=== PATIENT | female | born 1950 | race Caucasian/White ===

== ENCOUNTER 2023-01-30 06:59 | Outpatient (CLI) | payer MEDICARE, SELFPAY ==
[2023-01-30 07:47] LABS: Hematocrit 41.8 % (37.0-47.0); Hemoglobin 12.9 g/dL (12.0-15.0); Mean Corpuscular HGB Conc 30.9 g/dl (32-36); Mean Corpuscular Hemoglobin 28.9 pg (26-34); Mean Corpuscular Volume 93.5 fl (80-100); Platelet Count Result 300 k/mm3 (150-375); Red Blood Count 4.47 M/mm3 (4.2-5.4); Red Cell Distribution Width 14.5 % (11.5-14.5); White Blood Count 6.8 K/mm3 (4.5-10.0)
[2023-01-30 07:57] LABS: Anion Gap 9 mmol/L (8-16); Blood Urea Nitrogen 29 mg/dL (7-17); Calcium 9.3 mg/dL (8.4-10.2); Carbon Dioxide 26 mmol/L (22-30); Chloride 105 mmol/L (98-107); Estimated Glomerular Filt Rate 32; Glucose 121 mg/dL (65-110); Potassium 4.1 mmol/L (3.4-5.0); Sodium 140 mmol/L (137-145)
--- NOTE | 2023-01-30 08:27 | ECG_ITS ---
Measurements Intervals [place] Rate: 66 P: 55 TN: 162 QRS: -2 QRSD: 92 T: 31 QT: 446 QTc: 468 Interpretive Statements SINUS RHYTHM POSSIBLE LEFT ATRIAL ENLARGEMENT INCOMPLETE RIGHT BUNDLE BRANCH BLOCK CONSIDER INFERIOR INFARCT, AGE INDETERMINATE BASELINE WANDER- I, II ABNORMAL ECG NO PREVIOUS ECG AVAILABLE FOR COMPARISON Electronically Signed On 01-30-2023 9:19:24 ROOFING SALES REPRESENTATIVE by Ubaldo Louis D.O.
== END 2023-01-30 07:00 | disposition home or self-care (01) ==
PROVIDERS: PCP Nurse Practitioner Family; Visit Provider Neurological Surgery
DX: M48.062 Spinal stenosis, lumbar region with neurogenic claudication (principal); I10 Essential (primary) hypertension; Z01.818 Encounter for other preprocedural examination; I45.10 Unspecified right bundle-branch block
CPT/HCPCS: 36415; 80048; 85027; 93005

== ENCOUNTER 2023-02-02 11:22 | Outpatient (CLI) | payer MEDICARE, MEDICAID, SELFPAY ==
[2023-02-02 12:43] LABS: Hemoglobin A1C 5.5 % (<5.7)
[2023-02-02 12:44] LABS: Appearance Urine Clear (Clear); Bilirubin Urine Negative (Negative); Blood Urine 2+ (Negative); Color Urine Yellow (Yellow); Glucose Urine UA 3+ mg/dL (Negative); Ketones Urine Negative (Negative); Leukocyte Esterase Ur Trace LEU/UL (Negative); Nitrate Urine Negative (Negative); Protein Urine Negative (Negative); Specific Grav Ur 1.011 (1.001-1.035); Urobilinogen Urine 0.2 mg/dL (<2.0)
[2023-02-02 12:48] LABS: Add Urine Microscopic? YES; Partial Thromboplastin Time 30.5 SECONDS (22.3-36.8); Prothrombin Time 13.6 Seconds (11.1-14.7)
[2023-02-02 12:49] LABS: Bacteria Urine None Seen /hpf; Non Pathogenic Casts 0-2; Squamous Epithelial Cell Urine None seen /hpf (Few); WBC Urine 0-5 /hpf
== END 2023-02-02 11:23 | disposition home or self-care (01) ==
PROVIDERS: PCP Nurse Practitioner Family; Visit Provider Neurological Surgery
DX: M48.062 Spinal stenosis, lumbar region with neurogenic claudication (principal); E11.9 Type 2 diabetes mellitus without complications
CPT/HCPCS: 36415; 81001; 83036; 85610; 85730

== ENCOUNTER 2023-02-13 09:12 | Observation (INO) | payer MEDICARE, MEDICAID, SELFPAY ==
[2023-01-28 15:48] VITALS: BMI 34.4
--- NOTE | 2023-01-28 16:01 | PC.NURSE ---
PRE-OP INSTRUCTIONS, PLEASE READ CAREFULLY Report to the Outpatient Waiting Room, entrance under the green pavilion located off [facility], at time _0600_ on date _02/10/23_. Planned Procedure Time: _0730_. PACK A SMALL OVERNIGHT BAG AND LEAVE IN THE CAR Time changes happen often and if your time is changed the preop area will call you the afternoon before. - You and your visitor will be asked to self-screen and do not enter if you have any COVID symptoms. - A mask is optional within the hospital at this time. Patients may have clear liquids (water, carbonated beverages, clear teas, apple juice) until 3 hours prior to surgery (0430 AM) with a maximum of 20 ounces. - No food from midnight until time of surgery Take the following medications with a SIP of water the morning of surgery: _BUSPIRONE, CITALOPRAM, HYDROXYZINE, PREGABALIN_ DO NOT STOP ANY OF YOUR OTHER PRESCRIPTION MEDICATIONS PRIOR TO SURGERY ?EXCEPT THE FOLLOWING Medications to discontinue per DR. ANDERSON - _ASPIRIN, MULTIVITAMIN 7 DAYS PRIOR TO SURGERY, (PER PATIENT) Date to take last dose_02/02/23_ Please no make-up, nail tamazight, hairspray, perfume, deodorant, or body powder the day of surgery. No jewelry (including any body piercings) or valuables the day of surgery, leave them at home. Please take a shower or bath the night before, or the morning of, surgery with an antibacterial soap. Wear comfortable, loose fitting clothing. - Jewelry must be removed prior to entering the operating room. Rings and piercings that are not removed may be cut off. - The hospital will not accept responsibility for valuables. - Please leave all valuables, including medications, at home the day of surgery. If you are going home after surgery, a licensed parcel post truck driver must drive you home. - NO public transportation without another adult if you receive anesthesia. - We recommend that an adult stay with you for 24 hours following discharge. - We also recommend that you do not drive, make important decision, drink alcoholic beverages, or take any drugs that were not prescribed by your health care provider for at least 24 hours after your discharge time. Follow any additional instructions given to you from your surgeon. If you or anyone in your household have experienced Covid symptoms in the past week, please notify your surgeon or the nurse liaison at the phone number below for possible testing. Telephone instructions given to _PATIENT_and asked if any additional questions and then verbalized understanding. Patient advised to call surgeon office or pre surgery nurse liaison [phone] if any additional questions.
[2023-02-10] VITALS (14 sets, daily range): BP systolic 95–157; BP diastolic 35–55; PULSE 71–97; RESP 11–20; TEMP 36.3–37.2; O2SAT 96–100
--- NOTE | 2023-02-10 07:20 | WPDHPUPDATE1 ---
History and Physical Update Update Date/Time: 02/10/23 07:20 History and Physical has been reviewed, including an updated exam of the patient. There are NO changes in the patient's condition. Risks, benefits, and alternatives have been discussed and questions answered. Patient agrees to proceed with procedure.
[2023-02-10] MEDS: LACTATED RINGERS 1,000 ML 30 ML IV CONT ×2 (07:35→11:42)
--- NOTE | 2023-02-10 07:44 | WPDANESEPPF ---
Anes - Initial Pre Proc Eval Procedure: Operation Date: 02/10/23 07:30 Proposed Procedures p L2-3, L3-4, L4-5 Laminectomy Medial Facetectomies and Foraminotomies - Marita Arreola MD Date/Time: 02/10/23 07:44 Surgeon: aMrita Arreola MD Pre Op Diagnosis: Lumbar Stenosis with Neurogenic Claudication Patient Data Age: 72 Gender: F Height: 1.68 m Weight: 96.81 kg Allergies Allergy/AdvReac Type Severity Reaction Status Date / Time adhesive tape AdvReac SKIN Verified 01/28/23 15:34 IRRITATION Home Medications Medication Instructions Recorded Confirmed Type atorvastatin 20 mg tablet 20 mg PO DAILY 12/25/22 02/10/23 History buspirone 10 mg tablet 10 mg PO DAILY 12/25/22 02/10/23 History citalopram 40 mg tablet 20 mg PO DAILY 12/25/22 02/10/23 History dulaglutide 0.75 mg/0.5 mL 0.75 mg subcut WEEKLY 12/25/22 02/10/23 History subcutaneous pen injector (Trulicity) furosemide 40 mg tablet 40 mg PO QAM 12/25/22 02/10/23 History hydroxyzine HCl 10 mg tablet 10 mg PO ONCE 12/25/22 02/10/23 History lisinopril 20 mg tablet 20 mg PO DAILY 12/25/22 02/10/23 History omeprazole 40 mg capsule,delayed 40 mg PO DAILY 12/25/22 02/10/23 History release aspirin 81 mg capsule 81 mg PO DAILY 01/28/23 02/10/23 History empagliflozin 12.5 mg-metformin 1 tablet PO DAILY 01/28/23 02/10/23 History 1,000 mg tablet (Synjardy) fenofibrate nanocrystallized 145 145 mg PO DAILY 01/28/23 02/10/23 History mg tablet fluticasone propionate 50 2 spray intranasal DAILY 01/28/23 02/10/23 History mcg/actuation nasal spray,suspension multivitamin 1 tablet PO DAILY 01/28/23 02/10/23 History pregabalin 75 mg capsule 75 mg PO BID 01/28/23 02/10/23 History troglitazone 30 mg DAILY 01/28/23 02/10/23 History Patient hx anesthesia problems: none Family hx anesthesia problems: none Results Review: All pre-operative results and documents have been reviewed as part of the pre-operative evaluation. [facility] Social History Social History Smoking packs per day: 1.5 Smoking cigarettes per day: 30.0 Years smoked: 30 Smoking pack-years: 45.00 Smoking status: Former smoker Tobacco type: cigarettes Second hand tobacco smoke exposure: No Alcohol intake: current Alcohol use details: STATES FEW TIMES A YEAR Substance use: never Substance use type: does not use Lack of Transportation: YES Lack of Food: Sometimes True Current Housing: I Have Housing Concerned About Future Housing: No Difficulty Paying Gas/Electric Bills: No Difficulty Paying for Meds: No Currently Unemployed: No Education: High School Diploma/GED Difficulty w/ Childcare or Family Care: No Living arrangements: alone Occupation/Education: retired Gender identity (if verbalized by the patient): Female Sexual Orientation (if Verbalized by the Patient): Straight or Heterosexual Spiritual care concerns: No Anes - Eval Final PreProcedure Day of Procedure 02/10/23 07:44 Patient weight: obese Heart: regular rate and rhythm Lungs: clear to auscultation Airway: Mallampati scale class III Neurological: alert and oriented Last oral intake: >/= 8 hours ASA classification: III Emergent: no Anesthetic plan: proceed Anesthesia type and monitoring: general ETT and standard monitoring Results Review: All pre-operative results and documents have been reviewed as part of the pre-operative evaluation. Informed Consent: The patient's anesthetic plan and its attendant risks and benefits were discussed with the patient/family/POA. Questions were solicited and answers provided to the satisfaction of the patient/family/POA.
[2023-02-10 07:46] LABS: Glucose Point of Care 80 mg/dl (65-105)
[2023-02-10] MEDS: ceFAZolin 2 GM/D5W 50 ML 2 GM/50 ML BAG IVPB ×2 (07:54→16:49)
[2023-02-10] MEDS: BUPIVACAINE/EPINEPHRINE 0.5% 50 ML VIAL 30 ML INFILTRATE (08:29)
--- NOTE | 2023-02-10 11:36 | PM.OP ---
Procedure Note - Brief Procedure Note - Brief Date of procedure: 02/10/23 Lumbar Stenosis with Neurogenic Claudication Post-op diagnosis: Same Procedure performed: L2, L3, and L4 laminectomies Repair of iatrogenic CSF leak Surgeon: Marita Arreola MD Anesthesia: GETA Findings: CSF leak necountered at inferior aspect of laminectomy at site of previous surgery. Repaired with 5-0 neurolon, Duragen, and Duraseal followed by fat graft. Otherwise good decompression accomplished at all treated levels Estimated blood loss (mL): 300 Drains: No Packing: No Pathology: None sent Complications: Other complications (CSF leak) Condition: Stable Disposition: PACU
[2023-02-10 11:54] LABS: Glucose Point of Care 145 mg/dl (65-105)
[2023-02-10] MEDS: fentaNYL CITRATE INJ (*CRX) 100 MCG/2 ML VIAL 25 MCG IV PUSH (12:41)
--- NOTE | 2023-02-10 14:07 | ADMGEN ---
This patient, Louise Cook, was admitted to [facility] Surg Room 321-01. Patient/family oriented to hospital policies and general routines including ID bracelet, bed and alarms, visiting hours, pain management, procedures, bathroom and other care routines, personal items, smoking policy, room service/diet, and visiting hours. Information on how to activate the Rapid Response Team has been discussed. Patient/Family are encouraged to report perceived risks to care and to ask questions if they do not understand what they are told or what they should do. patient drowsy, vs stable, denies pain, c/o slight nausea
[2023-02-10] MEDS: ONDANSETRON INJ 4 MG/2 ML VIAL IV PUSH (14:22)
--- NOTE | 2023-02-10 15:27 | W.PM.PROC2 ---
Procedure Note - Detailed Date of Procedure 02/10/23 Pre-op Diagnosis Lumbar Stenosis with Neurogenic Claudication Post-op Diagnosis Same Procedure Performed 1. L2, L3, and L4 laminectomies, medial facetectomies, foraminotomies 2. Use of microscope for microsurgical dissection 3. Repair of iatrogenic CSF leak 4. Use of C-arm for fluoroscopy Surgeon Marita Arreola MD Cane Flume Feeding Machine Operator Kevin Anesthesia General and Local Indications Ms. Cook is a 72-year-old female with history of previous lumbar microdiskectomy, likely at L5-S1 based on the location of her previous incision, who presented with claudicatory back and bilateral leg pain which was unresponsive to multiple conservative measures. Imaging showed severe stenosis at L2-3, L3-4, and L4-5. Surgery in the form of laminectomies at these levels was recommended. Risks including bleeding, pain, infection, CSF leak, nerve damage, failure to relieve symptoms, weakness, paresthesias, and anesthetic complications were discussed. The patient provided written informed consent to proceed. Description of Procedure The patient was brought to the operating room, and general anesthesia was induced. The patient was placed prone on the Gage frame, and all pressure points were padded. Compression devices were placed on the patient's calves. The C-arm was brought onto the field to localize the appropriate disc space and assist with incisional planning. The previous incision was incoporated partially into his new incision. The area was prepped and draped in usual sterile fashion. A time out was conducted, and pre-operative antibiotics were administered. Local anesthesia was injected into the planned incision. A midline skin incision was made with a 10-blade scalpel, and dissection was carried down with the monopolar cautery to open the fascia. Once the spinous processes were located, a subperiosteal dissection was performed to expose the laminae bilaterally at L2, L3, and L4. Evidence of previous surgery was apparent near the L4-5 level. A self-retaining retractor was placed. The C-arm was brought in to confirm the correct level. The microscope was draped and brought into the field. The spinous processes of L2, L3, and L4 were removed with the Leksell. The high-speed drill was used to remove the laminae down to the ligamentum flavum at these levels. The remaining lamina was removed with kerrison rongeurs. The ligamentum flavum was opened and removed with the Kerrison. At the inferior aspect of the exposure on the right side, the dura was adherent to the overlying tissues, and a CSF leak was created while using the kerrison. Further exposure inferiorly was performed to expose the length of the durotomy. We were eventually able to visualize the entire durotomy and to close this primarily with a 5-0 neurolon. Small durotomies were being created with the needle, so a watertight closure was not achieved. Therefore, this was covered with Duragen followed by Duraseal. Hemostasis was ensured, and the area was copiously irrigated. A fat graft was harvested from the same incision and placed into the inferior half of the laminectomy defect. The muscle was loosely approximated with 0-Vicryl. The fascia was closed with 0-Vicryl in an interrupted fashion. The soft tissue was again copiously irrigated. The dermis was closed with 2-0 and 3-0 interrupted Vicryl. The skin was closed with 4-0 monocryl in subcuticular fashion. Skin glue was applied.? The patient was returned supine on the stretcher, extubated, and transferred to PACU without incident. Codes: 53993, 84060 x 2, 64138 Implants Duragen 1x1 Estimated Blood Loss 300 Drains No Packing No Pathology None sent Complications Other complications (Iatrogenic CSF leak at level of previous surgery) Condition Stable Disposition PACU [facility] Billing Surgery - Charge Forward: Surgery Billing
[2023-02-10] MEDS: oxyCODONE HCL (*CRX) 5 MG TAB IR PO (16:48)
[2023-02-10] MEDS: PREGABALIN (*CRX) 75 MG CAPSULE PO (16:50)
[2023-02-10] MEDS: ACETAMINOPHEN 500 MG TABLET 1000 MG PO (18:38)
[2023-02-10] MEDS: DOCUSATE SODIUM 100 MG CAPSULE PO (20:37)
[2023-02-10] MEDS: SODIUM CHLORIDE 0.9% IV 1,000 ML 100 ML IV CONT (20:41)
[2023-02-10 20:46] LABS: Glucose Point of Care 184 mg/dl (65-105)
[2023-02-11] MEDS: ceFAZolin 2 GM/D5W 50 ML 2 GM/50 ML BAG IVPB ×2 (00:48→09:08)
[2023-02-11 02:24] VITALS: BP 115/55; PULSE 82; RESP 16; TEMP 36.9; O2SAT 99
[2023-02-11] MEDS: ACETAMINOPHEN 500 MG TABLET 1000 MG PO ×3 (05:00→17:57)
[2023-02-11 05:38] VITALS: BP 98/49; PULSE 74; RESP 16; TEMP 37.1; O2SAT 98
[2023-02-11 07:53] LABS: Glucose Point of Care 158 mg/dl (65-105)
[2023-02-11] MEDS: PANTOPRAZOLE 40 MG TABLET PO (09:08)
[2023-02-11] MEDS: PREGABALIN (*CRX) 75 MG CAPSULE PO ×2 (09:09→16:33)
[2023-02-11] MEDS: DOCUSATE SODIUM 100 MG CAPSULE PO ×2 (09:09→21:20)
[2023-02-11] MEDS: FENOFIBRATE NANOCRYSTALLIZED 145 MG TABLET PO (09:09)
[2023-02-11] MEDS: metFORMIN HCL 500 MG TABLET 1000 MG BY MOUTH (09:09)
[2023-02-11] MEDS: FLUTICASONE PROPIONATE 0.05% NA SPR 16 GM BTL (*BKC) 2 SPRAY NASAL (09:09)
[2023-02-11] MEDS: lisinopriL 20 MG TABLET PO (09:09)
[2023-02-11] MEDS: ATORVASTATIN 20 MG TABLET PO (09:09)
[2023-02-11] MEDS: CITALOPRAM HYDROBROMIDE 20 MG TABLET PO (09:09)
[2023-02-11] MEDS: FUROSEMIDE 40 MG TABLET PO (09:09)
[2023-02-11] MEDS: busPIRone HCL 10 MG TABLET PO (09:09)
[2023-02-11] MEDS: PIOGLITAZONE HCL 30 MG TABLET PO (09:10)
[2023-02-11 09:25] VITALS: O2SAT 96
[2023-02-11] MEDS: SODIUM CHLORIDE 0.9% IV 1,000 ML 100 ML IV CONT ×2 (09:25→17:57)
[2023-02-11] MEDS: CYCLOBENZAPRINE HCL 10 MG TABLET PO (09:26)
[2023-02-11] MEDS: oxyCODONE HCL (*CRX) 5 MG TAB IR 10 MG PO (09:26)
[2023-02-11 10:00] VITALS: BP 118/46; PULSE 80; RESP 14; TEMP 36.4; O2SAT 97
[2023-02-11 11:53] LABS: Glucose Point of Care 195 mg/dl (65-105)
[2023-02-11 12:00] VITALS: BP 114/42; PULSE 80; RESP 16; TEMP 37; O2SAT 91
--- NOTE | 2023-02-11 14:40 | WPDNEUROSGPN ---
Progress Note: A&P Assessment and Plan (1) Lumbar stenosis with neurogenic claudication: Code(s): M48.062 - Spinal stenosis, lumbar region with neurogenic claudication Status: Acute (2) Status post lumbar laminectomy: Code(s): Z98.890 - Other specified postprocedural states Status: Acute Plan -Keep flat bedrest until tomorrow morning at 7am -Restart home Lantus -Plan to remove morris catheter tomorrow morning -PT/OT evaluations starting tomorrow -Anticipate monitoring in the hospital at least until Wednesday morning Subjective Date/time seen: 02/11/23 14:40 Interval history: Overall doing well today. She is having low back/incisional pain which is controlled with medication. No pain or paresthesias in legs. No headache. Had morris catheter placed due to retention Review of Systems Review of Systems: All systems reviewed & are unremarkable except as noted in HPI and below Exam Narrative: AOx4 Full strength in lower extremities Sensation intact to light touch Incision c/d/i with dermabond in place Objective Data Vital Signs Vital Signs: Vital Signs - 24 hr 02/10/23 15:15 02/10/23 20:46 02/11/23 02:24 Temperature 97.5 F L 99.0 F 98.5 F Pulse Rate 95 89 82 Respiratory Rate 16 17 16 Blood Pressure 123/35 L 105/38 L 115/55 L Pulse Oximetry 98 98 99 Oxygen Delivery 02/11/23 05:38 02/11/23 10:00 02/11/23 09:25 Temperature 98.7 F 97.5 F L Pulse Rate 74 80 Respiratory Rate 16 14 Blood Pressure 98/49 L 118/46 L Pulse Oximetry 98 97 96 Oxygen Delivery Room Air 02/11/23 12:00 Temperature 98.6 F Pulse Rate 80 Respiratory Rate 16 Blood Pressure 114/42 L Pulse Oximetry 91 Oxygen Delivery Intake/Output Intake/Output: Intake & Output 02/08/23 02/09/23 02/10/23 02/11/23 23:59 23:59 23:59 23:59 Intake Total 150 1272 Output Total 1100 Balance 150 172 Meds/Results Medications: Active Medications Generic Name Dose Route Start Last Admin Trade Name Freq PRN Reason Stop Dose Admin Acetaminophen 1,000 mg 02/10/23 12:00 02/11/23 13:12 Acetaminophen 500 Mg Tablet PO 1,000 mg Q6H TRIP Administration Al Hydrox/Mg Hydrox/Simethicone 20 ml 02/10/23 11:46 Mag Hydrox/Al Hydrox/Simeth 30 Ml Udc PO Q4H PRN Indigestion/Heartburn Atorvastatin Calcium 20 mg 02/11/23 09:00 02/11/23 09:09 Atorvastatin 20 Mg Tablet PO 20 mg DAILY TRIP Administration Bisacodyl 10 mg 02/10/23 11:46 Bisacodyl 10 Mg Suppository RECTAL DAILY PRN Constipation Buspirone HCl 10 mg 02/11/23 09:00 02/11/23 09:09 Buspirone Hcl 10 Mg Tablet PO 10 mg DAILY TRIP Administration Citalopram Hydrobromide 20 mg 02/11/23 09:00 02/11/23 09:09 Citalopram Hydrobromide 20 Mg Tablet PO 20 mg DAILY TRIP Administration Cyclobenzaprine HCl 10 mg 02/10/23 11:48 02/11/23 09:26 Cyclobenzaprine Hcl 10 Mg Tablet PO 10 mg TID PRN Administration Muscle Spasms Docusate Sodium 100 mg 02/10/23 21:00 02/11/23 09:09 Docusate Sodium 100 Mg Capsule PO 100 mg Q12HR TRIP Administration Fenofibrate 145 mg 02/11/23 09:00 02/11/23 09:09 Fenofibrate Nanocrystallized 145 Mg Tablet PO 145 mg DAILY TRIP Administration Fluticasone Propionate 2 spray 02/11/23 09:00 02/11/23 09:09 Fluticasone Propionate 0.05% Na Spr 16 Gm Btl (*Bkc) NASAL 2 spray DAILY TRIP Administration Furosemide 40 mg 02/11/23 09:00 02/11/23 09:09 Furosemide 40 Mg Tablet PO 40 mg QAM TRIP Administration Cefazolin Sodium 2 gm in 50 mls @ 100 mls/hr 02/10/23 16:00 02/11/23 09:08 Ancef 2 Gm/D5w 50 Ml IVPB 02/11/23 15:59 100 mls/hr Q8H TRIP Administration Sodium Chloride 1,000 mls @ 100 mls/hr 02/10/23 11:50 02/11/23 09:25 Normal Saline Iv IV CONT 100 mls/hr .Q10H TRIP Administration Lisinopril 20 mg 02/11/23 09:00 02/11/23 09:09 Lisinopril 20 Mg Tablet PO 20 mg DAILY TRIP Administration Metformin
[2023-02-11 16:15] LABS: Estimated CRCL calculation 39 ml/min; Estimated Glomerular Filt Rate 37
[2023-02-11] MEDS: EMPAGLIFLOZIN 5 MG TABLET 1 EACH BY MOUTH (16:33)
[2023-02-11 20:00] VITALS: BP 108/39; PULSE 78; RESP 18; TEMP 36.7; O2SAT 95
[2023-02-11] MEDS: ENOXAPARIN 40 MG/0.4 ML SYRINGE SUB-Q (21:20)
[2023-02-11] MEDS: INSULIN GLARGINE (*BKC) 100 UNITS/ML 10 UNITS SUB-Q (21:20)
[2023-02-11 21:52] LABS: Glucose Point of Care 193 mg/dl (65-105)
[2023-02-12 00:05] VITALS: BP 107/41; PULSE 72; RESP 16; TEMP 36.8; O2SAT 96
[2023-02-12] MEDS: oxyCODONE HCL (*CRX) 5 MG TAB IR PO (03:00)
[2023-02-12] MEDS: SODIUM CHLORIDE 0.9% IV 1,000 ML 100 ML IV CONT (03:03)
[2023-02-12 03:17] LABS: Glucose Point of Care 165 mg/dl (65-105)
[2023-02-12 04:00] VITALS: BP 127/45; PULSE 82; RESP 18; TEMP 36.3; O2SAT 98
[2023-02-12] MEDS: ACETAMINOPHEN 500 MG TABLET 1000 MG PO ×3 (06:06→17:49)
[2023-02-12 08:00] VITALS: BP 112/47; PULSE 80; RESP 18; TEMP 37; O2SAT 95
[2023-02-12 08:23] LABS: Glucose Point of Care 93 mg/dl (65-105)
--- NOTE | 2023-02-12 08:36 | WPDNEUROSGPN ---
Progress Note: A&P Assessment and Plan (1) Status post lumbar laminectomy: Code(s): Z98.890 - Other specified postprocedural states Status: Acute Plan POD#2 s/p L2-4 laminectomies with repaired csf leak No KENDALL this am, continue to elevate head of bed over the next hour, then advance activities with PT/OT through today. Discussed plan with patient and her nurse. Dc morris this afternoon when mobilizing reliably. Plan for dc home tomorrow if patient makes good progress, she may need home health PT/OT. Subjective Date/time seen: 02/12/23 08:36 Interval history: Patient started to elevate head of bed this am, denies any headache and no new leg symptoms since surgery. +sinus drainage. Morris placed yesterday am due to >900cc of retention Exam Narrative: A, A, Ox4 Full strength in lower extremities Sensation intact to light touch Incision c/d/i with dermabond in place, no signs of drainage morris in place ? Objective Data Vital Signs Vital Signs: Vital Signs - 24 hr 02/11/23 10:00 02/11/23 09:25 02/11/23 12:00 Temperature 97.5 F L 98.6 F Pulse Rate 80 80 Respiratory Rate 14 16 Blood Pressure 118/46 L 114/42 L Pulse Oximetry 97 96 91 Oxygen Delivery Room Air 02/11/23 20:00 02/11/23 20:00 02/12/23 00:05 Temperature 98.0 F 98.2 F Pulse Rate 78 72 Respiratory Rate 18 16 Blood Pressure 108/39 L 107/41 L Pulse Oximetry 95 96 Oxygen Delivery Room Air 02/12/23 04:00 Temperature 97.3 F L Pulse Rate 82 Respiratory Rate 18 Blood Pressure 127/45 L Pulse Oximetry 98 Oxygen Delivery Intake/Output Intake/Output: Intake & Output 02/09/23 02/10/23 02/11/23 02/12/23 23:59 23:59 23:59 23:59 Intake Total 150 2494 1400 Output Total 2300 1600 Balance 150 194 -200 Meds/Results Medications: Active Medications Generic Name Dose Route Start Last Admin Trade Name Freq PRN Reason Stop Dose Admin Acetaminophen 1,000 mg 02/10/23 12:00 02/12/23 06:06 Acetaminophen 500 Mg Tablet PO 1,000 mg Q6H TRIP Administration Al Hydrox/Mg Hydrox/Simethicone 20 ml 02/10/23 11:46 Mag Hydrox/Al Hydrox/Simeth 30 Ml Udc PO Q4H PRN Indigestion/Heartburn Atorvastatin Calcium 20 mg 02/11/23 09:00 02/11/23 09:09 Atorvastatin 20 Mg Tablet PO 20 mg DAILY TRIP Administration Bisacodyl 10 mg 02/10/23 11:46 Bisacodyl 10 Mg Suppository RECTAL DAILY PRN Constipation Buspirone HCl 10 mg 02/11/23 09:00 02/11/23 09:09 Buspirone Hcl 10 Mg Tablet PO 10 mg DAILY TRIP Administration Citalopram Hydrobromide 20 mg 02/11/23 09:00 02/11/23 09:09 Citalopram Hydrobromide 20 Mg Tablet PO 20 mg DAILY TRIP Administration Cyclobenzaprine HCl 10 mg 02/10/23 11:48 02/11/23 09:26 Cyclobenzaprine Hcl 10 Mg Tablet PO 10 mg TID PRN Administration Muscle Spasms Dextrose 12.5 gm 02/11/23 14:38 Dextrose 50% 25 Gm/50 Ml Syringe IV PUSH PRN PRN Hypoglycemia Protocol Docusate Sodium 100 mg 02/10/23 21:00 02/11/23 21:20 Docusate Sodium 100 Mg Capsule PO 100 mg Q12HR TRIP Administration Enoxaparin Sodium 40 mg 02/11/23 21:00 02/11/23 21:20 Enoxaparin 40 Mg/0.4 Ml Syringe SUB-Q 40 mg HS TRIP Administration Fenofibrate 145 mg 02/11/23 09:00 02/11/23 09:09 Fenofibrate Nanocrystallized 145 Mg Tablet PO 145 mg DAILY TRIP Administration Fluticasone Propionate 2 spray 02/11/23 09:00 02/11/23 09:09 Fluticasone Propionate 0.05% Na Spr 16 Gm Btl (*Bkc) NASAL 2 spray DAILY TRIP Administration Furosemide 40 mg 02/11/23 09:00 02/11/23 09:09 Furosemide 40 Mg Tablet PO 40 mg QAM TRIP Administration Glucagon 1 mg 02/11/23 14:38 Glucagon For Inj 1 Mg Vial IM PRN PRN Hypoglycemia Protocol Glucose 15 gm 02/11/23 14:38 Glucose Oral Gel 15 Gm Of Glucse In 37.5 Gm Tube PO PRN PRN Hypoglycemia Protocol Sodium Chloride 1,000 mls @
[2023-02-12 08:45] VITALS: O2SAT 94
[2023-02-12] MEDS: PANTOPRAZOLE 40 MG TABLET PO (08:48)
[2023-02-12] MEDS: PIOGLITAZONE HCL 30 MG TABLET PO (08:48)
[2023-02-12] MEDS: ATORVASTATIN 20 MG TABLET PO (08:48)
[2023-02-12] MEDS: CITALOPRAM HYDROBROMIDE 20 MG TABLET PO (08:48)
[2023-02-12] MEDS: PREGABALIN (*CRX) 75 MG CAPSULE PO ×2 (08:48→16:23)
[2023-02-12] MEDS: DOCUSATE SODIUM 100 MG CAPSULE PO ×2 (08:48→20:47)
[2023-02-12] MEDS: FUROSEMIDE 40 MG TABLET PO (08:48)
[2023-02-12] MEDS: metFORMIN HCL 500 MG TABLET 1000 MG BY MOUTH (08:48)
[2023-02-12] MEDS: busPIRone HCL 10 MG TABLET PO (08:48)
[2023-02-12] MEDS: lisinopriL 20 MG TABLET PO (08:48)
[2023-02-12] MEDS: FENOFIBRATE NANOCRYSTALLIZED 145 MG TABLET PO (08:48)
[2023-02-12] MEDS: FLUTICASONE PROPIONATE 0.05% NA SPR 16 GM BTL (*BKC) 2 SPRAY NASAL (08:49)
[2023-02-12] MEDS: EMPAGLIFLOZIN 5 MG TABLET 1 EACH BY MOUTH (09:49)
[2023-02-12 12:19] LABS: Glucose Point of Care 104 mg/dl (65-105)
[2023-02-12 12:30] VITALS: BP 131/79; PULSE 80; RESP 18; TEMP 35.9; O2SAT 95
[2023-02-12 16:00] VITALS: BP 118/51; PULSE 86; RESP 14; TEMP 36.4; O2SAT 94
[2023-02-12 17:16] LABS: Glucose Point of Care 177 mg/dl (65-105)
[2023-02-12] MEDS: INSULIN GLARGINE (*BKC) 100 UNITS/ML 10 UNITS SUB-Q (20:45)
[2023-02-12] MEDS: INSULIN ASPART (*BKC) 100 UNITS/ML SUB-Q (20:46)
[2023-02-12] MEDS: ENOXAPARIN 40 MG/0.4 ML SYRINGE SUB-Q (20:47)
[2023-02-12 21:16] LABS: Glucose Point of Care 239 mg/dl (65-105)
--- NOTE | ~2023-02-13 | XR_ITS ---
XR fluoroscopy no charge Indication: L2-3, L3-4 and L4-5 laminectomy TECHNIQUE: Fluoroscopy used during L2-3, L3-4 and L4-5 laminectomy performed by [Marita traore MD] on 02/10/2023. 5 seconds of fluoroscopy with one fluoroscopic images captured. FINDINGS: Correlate with procedure note. IMPRESSION: Fluoroscopy used during L2-3, L3-4 and L4-5 laminectomy. Reviewed, dictated and finalized at location B. [facility]
[2023-02-13] MEDS: ACETAMINOPHEN 500 MG TABLET 1000 MG PO ×2 (00:58→05:42)
[2023-02-13 05:00] VITALS: BP 110/51; PULSE 74; RESP 17; TEMP 36.1; O2SAT 96
[2023-02-13 08:22] LABS: Glucose Point of Care 118 mg/dl (65-105)
[2023-02-13] MEDS: PIOGLITAZONE HCL 30 MG TABLET PO (09:43)
[2023-02-13] MEDS: metFORMIN HCL 500 MG TABLET 1000 MG BY MOUTH (09:43)
[2023-02-13] MEDS: DOCUSATE SODIUM 100 MG CAPSULE PO (09:43)
[2023-02-13] MEDS: lisinopriL 20 MG TABLET PO (09:43)
[2023-02-13] MEDS: FUROSEMIDE 40 MG TABLET PO (09:43)
[2023-02-13] MEDS: busPIRone HCL 10 MG TABLET PO (09:43)
[2023-02-13] MEDS: CITALOPRAM HYDROBROMIDE 20 MG TABLET PO (09:44)
[2023-02-13] MEDS: PREGABALIN (*CRX) 75 MG CAPSULE PO (09:44)
[2023-02-13] MEDS: ATORVASTATIN 20 MG TABLET PO (09:44)
[2023-02-13] MEDS: PANTOPRAZOLE 40 MG TABLET PO (09:44)
[2023-02-13] MEDS: FLUTICASONE PROPIONATE 0.05% NA SPR 16 GM BTL (*BKC) 2 SPRAY NASAL (09:44)
[2023-02-13] MEDS: FENOFIBRATE NANOCRYSTALLIZED 145 MG TABLET PO (09:44)
--- NOTE | 2023-02-13 12:40 | PM.DS ---
DS: Admitting Diagnosis Discharge Date February 13, 2023 Admitting Diagnosis Lumbar stenosis with neurogenic claudication DS: Discharge Diagnosis Discharge Diagnosis (1) Status post lumbar laminectomy: Code(s): Z98.890 - Other specified postprocedural states Status: Acute DS: Summary Hospital Course Hospital Course: Ms. Cook presented to the hospital on February 10 for surgery; please see the op note for more details. She was transferred to the floor after surgery and was kept on flat bedrest until 7am on February 12. Morris catheter was placed after surgery due to urinary retention on bedrest. She was mobilized on POD2, and the morris catehter was removed. She was able to void independently. She walked in the halls without pain in her legs. She reported improved sensation in her legs as well. She denies significant back pain or positional headaches. She was ready for discharge on POD3. Time Spent with Patient Time attestation: Total time spent providing and/or coordinating discharge services: Exam Narrative: AOx4 Full strength in lower extremities Sensation intact to light touch in lower extremities Incision c/d/i with skin glue in place DS: Data Data Completed and Pending Labs on day of discharge: Labs from last 24 hours 02/13/23 02/12/23 02/12/23 08:08 20:28 17:04 POC Capillary Glucose 118 H 239 H 177 H Discharge Plan Discharge Patient Disposition: Home, Self-Care Discharge Instructions: Per Care Coordination: Patient to have M for PT/OT eval and treat P: [phone] option 1. RN please fax discharge instructions to: F: [phone] Discharge Instructions Procedure: Lumbar laminectomy Your doctor has partially removed one or more lamina from your back (lumbar spine), to remove pressure from the nerve roots. Here are some instructions to follow upon discharge from the hospital to help in your recovery. Wound Care: You may shower and get your incision wet starting on post-operative day 2 (February 12). You may use soap and water to clean your incision. Lightly dab the incision dry. Do not apply any ointments, creams, or lotions to the incision. Do not take baths or sit in a hot tub or pool for at least 4 weeks after surgery or until approved by your doctor. Your incision is covered with skin glue. This will typically peel off on its own in a couple weeks. Activity: Until released by your doctor, you should not return to work. You should rest at home and let your body heal. Taking short walks is encouraged, but avoid strenuous exercise. Do not jog, run, bicycle, lift weights, or participate in any other exercises unless specifically allowed by your doctor. Most importantly, avoid lifting objects heavier than about 10 lbs (or carton of milk) as this places a strain on your back. Avoid twisting and bending motions. Avoid prolonged sitting. Where possible, avoid household activities that involve lifting and/or bending such as laundry, grocery shopping, and childcare. Try to arrange for help from friends and family for these activities while your back heals. You should not drive for a few days and must be off narcotic pain medications prior to driving. DO NOT SMOKE TOBACCO. Smoking has been proven to interfere with the normal healing of the bones in your back. Smoking will dramatically reduce the success rate of your surgery. Your doctor can prescribe a patch to help you stop smoking if you would like. Diet: You can return to your usual diet, unless instructed otherwise by your doctor. Medications: You should resume taking all of your normal medications, unless instructed otherwise by your doctor. If you have questions about your normal medications (those prescribed for high blood pressure, for example), call your family doctor or pool finisher. You will be given a prescription for pain medications and possibly a laxative, as pain medications
[2023-02-13 12:52] LABS: Glucose Point of Care 159 mg/dl (65-105)
== END 2023-02-13 14:55 | disposition home or self-care (01) ==
PROVIDERS: Admitting Provider Neurological Surgery; PCP Nurse Practitioner Family; Visit Provider Neurological Surgery
PROC: (CPT 63005; principal; 2023-02-10 07:30)
DX: M48.062 Spinal stenosis, lumbar region with neurogenic claudication (principal); G97.41 Accidental puncture or laceration of dura during a procedure; I10 Essential (primary) hypertension; E78.5 Hyperlipidemia, unspecified; E11.9 Type 2 diabetes mellitus without complications; E66.9 Obesity, unspecified; Z68.34 Body mass index [BMI] 34.0-34.9, adult; Z87.891 Personal history of nicotine dependence; Z79.82 Long term (current) use of aspirin; Z79.84 Long term (current) use of oral hypoglycemic drugs
CPT/HCPCS: 63047; 63048; 63707; 36415; 80048; 82565; 82948; 85027; 93005; 97110; 97161; 97165; 97535; 99199; A9270; G0378; J0690; J1100; J1170; J1650; J1815; J2405; J2704; J3010; J7030; J7120